=== PATIENT | male | born 1980 | race Caucasian/White ===

== ENCOUNTER 2021-05-28 00:42 | Inpatient (IN) | payer MEDICAID, OTHER, SELFPAY ==
[~2021-05-28] VITALS: Ht 182.9 cm; Wt 72.7 kg
[2021-05-28 02:12] LABS: HEMATOCRIT 45.7 % (42.0-52.0); MEAN CORPUSCULAR HEMOGLOBIN 31.9 pg (27.0-33.0); MEAN CORPUSCULAR VOLUME 91.2 fl (80.0-96.0); PLATELET COUNT, AUTOMATED 211 10^3/uL (150-450); RED BLOOD COUNT 5.01 10^6/uL (4.30-6.10); WHITE BLOOD COUNT 8.7 10^3/uL (4.0-10.0)
[2021-05-28 02:51] LABS: RSV AMPLIFICATION NEGATIVE (NEGATIVE)
[2021-05-28 02:58] LABS: AMPHETAMINES LEVEL URINE NEGATIVE (NEGATIVE); BARBITURATES URINE NEGATIVE (NEGATIVE); BENZODIAZEPINES URINE NEGATIVE (NEGATIVE); CANNABINOIDS URINE POSITIVE (NEGATIVE); COCAINE METABOLITE URINE NEGATIVE (NEGATIVE); METHADONE URINE NEGATIVE (NEGATIVE); OPIATES URINE NEGATIVE (NEGATIVE); PHENCYCLIDINE URINE NEGATIVE (NEGATIVE)
[2021-05-28 02:58] LABS: ACETAMINOPHEN LEVEL < 2.0 UG/ML (10.0-30.0); ALT/SGPT 140 U/L (12-78); BILIRUBIN,DIRECT 0.3 MG/DL (0.0-0.2); BILIRUBIN,TOTAL 0.8 MG/DL (0.2-1.0); BLOOD UREA NITROGEN 11 MG/DL (7-18); CALCIUM LEVEL 9.4 MG/DL (8.5-10.1); CARBON DIOXIDE LEVEL 31 MEQ/L (21-32); CHLORIDE LEVEL 106 MEQ/L (98-107); ETHYL ALCOHOL (ETHANOL) < 0.003 % (0.000-0.010); GLOMERULAR FILTRATION RATE > 60.0 (>60); GLUCOSE, FASTING 88 MG/DL (70-100); POTASSIUM SERUM 3.7 MEQ/L (3.5-5.1); SALICYLATE LEVEL 3.3 MG/DL (5.0-30.0); SODIUM LEVEL 141 MEQ/L (136-145); TOTAL PROTEIN 7.5 GM/DL (6.4-8.2)
[2021-05-28] MEDS ORDERED: HOME MED LIST COMPLETE! XX SCH (06:10)
[2021-05-28] MEDS: NICOTINE 21MG/24HR 1 EA TRANSDERMAL TD SCH (09:00)
[2021-05-28] MEDS ORDERED: MAALOX 30 ML SUSP *UDC PO PRN (12:25)
[2021-05-28] MEDS ORDERED: IBUPROFEN 400MG TAB PO PRN (12:25)
[2021-05-28] MEDS ORDERED: MOM 30ML SUSPENSION UDC PO PRN (12:25)
[2021-05-28 18:07] VITALS: BP 132/78
[2021-05-29 06:34] VITALS: BP 112/65
[2021-05-29] MEDS: NICOTINE 21MG/24HR 1 EA TRANSDERMAL TD SCH (09:00)
[2021-05-29 13:54] LABS: HEPATITIS B CORE ANTIBODY IGM NEGATIVE (NEGATIVE); HEPATITIS B SURFACE ANTIGEN NEGATIVE (NEGATIVE)
[2021-05-29 13:55] LABS: HEPATITIS C VIRUS ABY INDEX > 11.0 INDEX (<0.8)
[2021-05-29] MEDS: OLANZapine ORAL DISINTEGRATING TAB 5MG PO PRN (18:01)
[2021-05-29 18:46] VITALS: BP 131/85
[2021-05-30 06:00] VITALS: BP 108/53
[2021-05-30] MEDS: NICOTINE 21MG/24HR 1 EA TRANSDERMAL TD SCH (11:34)
[2021-05-30] MEDS: OLANZapine ORAL DISINTEGRATING TAB 5MG PO PRN (11:35)
[2021-05-30 18:34] VITALS: BP 137/70
[2021-05-31 06:35] VITALS: BP 108/59
[2021-05-31] MEDS: NICOTINE 21MG/24HR 1 EA TRANSDERMAL TD SCH (10:03)
[2021-05-31] MEDS: OLANZapine ORAL DISINTEGRATING TAB 5MG PO PRN (14:27)
[2021-05-31 18:49] VITALS: BP 122/87
[2021-06-01 06:45] VITALS: BP 106/58
[2021-06-01] MEDS: NICOTINE 21MG/24HR 1 EA TRANSDERMAL TD SCH (09:00)
[2021-06-01] MEDS ORDERED: NICO21PAT TD (09:18)
[2021-06-01] MEDS ORDERED: OLAN1TAB16 PO (09:18)
== END 2021-06-01 11:40 | disposition home or self-care (01) | DRG 753 ==
LOC: M ED 00:42 → M ED INP 12:25 → M PSY 15:00
PROVIDERS: ADMIT Student in an Organized Health Care Education/Training Program; ATTEND Student in an Organized Health Care Education/Training Program
DX: F32.89 Other specified depressive episodes (principal); B18.2 Chronic viral hepatitis C; F41.1 Generalized anxiety disorder; F12.90 Cannabis use, unspecified, uncomplicated; F11.90 Opioid use, unspecified, uncomplicated; F16.90 Hallucinogen use, unspecified, uncomplicated; F17.200 Nicotine dependence, unspecified, uncomplicated